=== PATIENT | male | born 2000 | race Two or more races ===

== ENCOUNTER 2023-06-17 07:32 | Emergency (ER) | payer OTHER ==
[~2023-06-17] VITALS: Ht 177.8 cm; Wt 84.1 kg
[2023-06-17 10:15] VITALS: TEMP 98.2
[2023-06-17] MEDS: ACETAMINOPHEN 500 MG TABLET PO ONE (11:27)
[2023-06-17] MEDS: PERTUSS(ACELL),DIPH,TET/PF 0.5 ML SYRINGE [ADULT] IM. ONE (13:02)
[2023-06-17] MEDS: BACITRACIN 28 GM OINTMENT TP ONE (13:58)
[2023-06-17 14:00] VITALS: BP 122/84; PULSE 97; RESP 16
== END 2023-06-17 13:59 | disposition home or self-care (01) ==
LOC: EMS 07:34
DX: S80.212A Abrasion, left knee, initial encounter (principal); S60.512A Abrasion of left hand, initial encounter; M25.562 Pain in left knee; W19.XXXA Unspecified fall, initial encounter; Y93.89 Activity, other specified; Y92.89 Other specified places as the place of occurrence of the external cause; Y99.8 Other external cause status
CPT/HCPCS: 72072; 90471; 90715; 99284